=== PATIENT | female | born 1990 | race American Indian/Alaskan Native ===

== ENCOUNTER 2016-12-24 17:06 | Emergency (ER) | payer MEDICAID, OTHER ==
--- NOTE | 2016-12-24 17:53 | EDM.PDOC ---
ED HPI GENERAL MEDICAL PROBLEM - General Chief Complaint: ENT Problem Stated Complaint: PT HAS SORE THROAT Time Seen by Provider: 12/24/16 17:31 - History of Present Illness INITIAL COMMENTS - FREE TEXT/NARRATIVE: HISTORY AND PHYSICAL: History of present illness: The patient is a 26-year-old female who presents with a two-day history of body aches nasal congestion and nasal drainage occasional cough subjective fevers sore throat. Patient did not get her influenza shot this year but did have a tonsillectomy as a teenager. Patient has had ill contacts. She does not have chest pain or shortness of breath no abdominal pain or vomiting but did have one episode of diarrhea this morning. She's tried fqhm-dwa-rujvywv ibuprofen for the bodyaches and a subjective fever and Benadryl. Patient denies any headache or neck pain and has no flank pain or urinary complaints. Patient has an implant for contraception. She has no history of cardiac or pulmonary disease and has been eating and drinking normally. Review of systems: As per history of present illness and below otherwise all systems reviewed and negative. Past medical history: As per history of present illness and as reviewed below otherwise noncontributory. Surgical history: As per history of present illness and as reviewed below otherwise noncontributory. Social history: No reported history of drug or alcohol abuse. Family history: As per history of present illness and as reviewed below otherwise noncontributory. Physical exam: General: Well-developed mildly overweight female who is nontoxic and has nasal quality to voice but is not hoarse. Vital signs of been reviewed by me. HEENT: Atraumatic, normocephalic, pupils reactive, negative for conjunctival pallor or scleral icterus, mucous membranes moist, throat clear of exudates and there is mild posterior oropharyngeal erythema without any swelling, there is no cervical adenopathy or nuchal rigidity, neck supple, nontender, trachea midline. There is no discrete frontal or maxillary sinus tenderness but turbinates are boggy bilaterally and are reddened Lungs: Clear to auscultation, breath sounds equal bilaterally, chest nontender. No work of breathing stridor or sensory muscle use Heart: S1S2, regular, negative for clicks, rubs, or JVD. Abdomen: Soft, nondistended, nontender. Negative for masses or hepatosplenomegaly. Negative for costovertebral tenderness. Genitourinary: Deferred. Rectal: Deferred. Extremities: Atraumatic, negative for cords or calf pain. Neurovascular unremarkable. Neuro: Awake, alert, oriented. Cranial nerves II through XII unremarkable. Cerebellum unremarkable. Motor and sensory unremarkable throughout. Exam nonfocal. Diagnostics: Influenza swab rapid strep Therapeutics: [] Impression: Sinusitis/pharyngitis Definitive disposition and diagnosis as appropriate pending reevaluation and review of above. 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: Musculoskeletal History: Reports: Other (see below) Other Musculoskeletal History: compression fracture in back Neurological History: Reports: None Psychiatric History: Reports: Anxiety, Bipolar, Depression Hematologic History: Reports: None Immunologic History: Reports: None Oncologic (Cancer) History: Reports: None Dermatologic History: Reports: None - Infectious Disease History Infectious Disease History: Reports: None - Past Surgical History HEENT Surgical History: Reports: Tonsillectomy Social & Family History - Family History Family Medical History: Noncontributory HEENT: Reports: None - Tobacco Use Smoking Status *Q: Current Every Day Smoker Years of Tobacco use: 10 Packs/Tins Daily: 1 Second Hand Smoke Exposure: No - Recreational Drug Use Recreational Drug Use: No ED ROS GENERAL - Review of Systems Review Of Systems: ROS reveals no pertinent complaints other than HPI. ED EXAM, GENERAL - Physical Exam Exam: See Below (See dictation) Course - Vital Signs Last Recorded V/S: Last Vital Signs Temp 36.9 C 12/24/16 17:32 Pulse 103 H 12/24/16 17:32 Resp 18 12/24/16 17:32 BP 115/68 12/24/16 17:32 Pulse Ox 98 12/24/16 17:32 - Orders/Labs/Meds Orders: Active Orders 24 hr Category Date Time Status CULTURE STREP A CONFIRMATION [] Stat Lab 12/24/16 17:47 Results STREP SCRN A RAPID W CULT CONF [RM] Stat Lab 12/24/16 17:47 Results Departure - Departure Time of Disposition: 18:36 Disposition: Home, Self-Care 01 Condition: good Clinical Impression: Sinusitis Qualifiers: Sinusitis location: unspecified location Chronicity: acute Recurrence: not specified as recurrent Qualified Code(s): J01.90 - Acute sinusitis, unspecified Forms: ED Department Discharge Additional Instructions: The following information is given to patients seen in the emergency department who are being discharged to home. This information is to outline your options for follow-up care. We provide all patients seen in our emergency department with a follow-up referral. The need for follow-up, as well as the timing and circumstances, are variable depending upon the specifics of your emergency department visit. If you don't have a primary care physician on staff, we will provide you with a referral. We always advise you to contact your personal physician following an emergency department visit to inform them of the circumstance of the visit and for follow-up with them and/or the need for any referrals to a consulting specialist. The emergency department will also refer you to a specialist when appropriate. This referral assures that you have the opportunity for followup care with a specialist. All of these measure are taken in an effort to provide you with optimal care, which includes your followup. Under all circumstances we always encourage you to contact your private physician who remains a resource for coordinating your care. When calling for followup care, please make the office aware that this follow-up is from your recent emergency room visit. If for any reason you are refused follow-up, please contact the [facility] emergency department at and ask to speak to the emergency department charge nurse. [facility]- Internal Medicine [place] [address] Please continue to use Tylenol/ibuprofen for bodyaches and fevers and push hydration as we discussed. Please take antibiotics as directed until they're finished. Use toia-zop-ifbfrnw Benadryl or Claritin to help dry up her sinuses and urmm-wof-fyjbkpa Flonase to help open up the nasal passages and allow adequate drainage. Please call and followup with primary care using resources given to today and return to ER as needed and as discussed. - My Orders Last 24 Hours: My Active Orders 12/24/16 17:47 CULTURE STREP A CONFIRMATION [RM] Stat STREP SCRN A RAPID W CULT CONF [RM] Stat - Assessment/Plan Last 24 Hours: My Active Orders 12/24/16 17:47 CULTURE STREP A CONFIRMATION [RM] Stat STREP SCRN A RAPID W CULT CONF [RM] Stat
[2016-12-24 18:55] VITALS: BP 116/66
== END 2016-12-24 18:44 | disposition home or self-care (01) ==
LOC: MW.ED 17:06
DX: J01.90 Acute sinusitis, unspecified (principal); F41.9 Anxiety disorder, unspecified; F31.9 Bipolar disorder, unspecified; Z79.899 Other long term (current) drug therapy
CPT/HCPCS: 87081; 87804; 87880; 99283

== ENCOUNTER 2017-02-13 08:52 | Emergency (ER) | payer MEDICAID, OTHER ==
--- NOTE | 2017-02-13 09:15 | EDM.PDOC ---
ED HPI GENERAL MEDICAL PROBLEM - General Chief Complaint: Respiratory Problem Stated Complaint: COUGH Time Seen by Provider: 02/13/17 09:15 Source of Information: Reports: Patient - History of Present Illness INITIAL COMMENTS - FREE TEXT/NARRATIVE: HISTORY AND PHYSICAL: History of present illness: [] Patient presents with sore throat increasing in severity over the last week as well as cough and congestion No fever nausea vomiting chills sweats No potato voice drooling or trismus Review of systems: As per history of present illness and below otherwise all systems reviewed and negative. Past medical history: As per history of present illness and as reviewed below otherwise noncontributory. Surgical history: As per history of present illness and as reviewed below otherwise noncontributory. Social history: No reported history of drug or alcohol abuse. Family history: As per history of present illness and as reviewed below otherwise noncontributory. Physical exam: HEENT: Atraumatic, normocephalic, pupils reactive, negative for conjunctival pallor or scleral icterus, mucous membranes moist, throat clear, neck supple, nontender, trachea midline. Moderate erythema no abscess or exudate appreciated Lungs: Clear to auscultation, breath sounds equal bilaterally, chest nontender. Heart: S1S2, regular, negative for clicks, rubs, or JVD. Abdomen: Soft, nondistended, nontender. Negative for masses or hepatosplenomegaly. Negative for costovertebral tenderness. Pelvis: Stable nontender. Genitourinary: Deferred. Rectal: Deferred. Extremities: Atraumatic, negative for cords or calf pain. Neurovascular unremarkable. Neuro: Awake, alert, oriented. Cranial nerves II through XII unremarkable. Cerebellum unremarkable. Motor and sensory unremarkable throughout. Exam nonfocal. Diagnostics: [] Strep Chest 2 views Therapeutics: [] Rocephin 1 g IM Amoxicillin 875 by mouth twice a day Impression: [] Acute pharyngitis/strep Persistent cough Definitive disposition and diagnosis as appropriate pending reevaluation and review of above. 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: Musculoskeletal History: Reports: None Other Musculoskeletal History: compression fracture in back Neurological History: Reports: None Psychiatric History: Reports: Anxiety, Bipolar, Depression Endocrine/Metabolic History: Reports: Obesity/BMI 30+ Hematologic History: Reports: None Immunologic History: Reports: None Oncologic (Cancer) History: Reports: None Dermatologic History: Reports: None - Infectious Disease History Infectious Disease History: Reports: None - Past Surgical History Head Surgeries/Procedures: Reports: None HEENT Surgical History: Reports: Tonsillectomy Social & Family History - Family History Family Medical History: Noncontributory HEENT: Reports: None - Tobacco Use Smoking Status *Q: Current Every Day Smoker Years of Tobacco use: 10 Packs/Tins Daily: 1 Second Hand Smoke Exposure: No - Caffeine Use Caffeine Use: Reports: None - Recreational Drug Use Recreational Drug Use: No ED ROS GENERAL - Review of Systems Review Of Systems: ROS reveals no pertinent complaints other than HPI. ED EXAM, GENERAL - Physical Exam Exam: See Below Course - Vital Signs Last Recorded V/S: Last Vital Signs Temp 36.2 C 02/13/17 09:09 Pulse 103 H 02/13/17 09:09 Resp 16 02/13/17 09:09 BP 130/69 02/13/17 09:09 Pulse Ox 96 02/13/17 09:09 - Orders/Labs/Meds Orders: Active Orders 24 hr Category Date Time Status Chest 2V [CR] Stat Exams 02/13/17 09:15 Taken Labs: Laboratory Tests 02/13/17 Range/Units 09:16 Urine HCG, Qual NEGATIVE (NEGATIVE) Meds: Medications Discontinued Medications Generic Name Dose Route Start Last Admin Trade Name Freq PRN Reason Stop Dose Admin Ceftriaxone Sodium 1,000 mg/ 4 mls @ 4 mls/sec 02/13/17 09:52 Lidocaine HCl IM 02/13/17 09:53 ONETIME ONE Departure - Departure Time of Disposition: 10:07 Disposition: Home, Self-Care 01 Condition: good Clinical Impression: Strep pharyngitis - Discharge Information Forms: ED Department Discharge Additional Instructions: Medication as prescribed Return if symptoms persist or worsen Followup with primary care in 2 weeks The following information is given to patients seen in the emergency department who are being discharged to home. This information is to outline your options for follow-up care. We provide all patients seen in our emergency department with a follow-up referral. The need for follow-up, as well as the timing and circumstances, are variable depending upon the specifics of your emergency department visit. If you don't have a primary care physician on staff, we will provide you with a referral. We always advise you to contact your personal physician following an emergency department visit to inform them of the circumstance of the visit and for follow-up with them and/or the need for any referrals to a consulting specialist. The emergency department will also refer you to a specialist when appropriate. This referral assures that you have the opportunity for follow-up care with a specialist. All of these measure are taken in an effort to provide you with optimal care, which includes your follow-up. Under all circumstances we always encourage you to contact your private physician who remains a resource for coordinating your care. When calling for follow-up care, please make the office aware that this follow-up is from your recent emergency room visit. If for any reason you are refused follow-up, please contact the [facility] emergency department at and asked to speak to the emergency department charge nurse. - My Orders Last 24 Hours: My Active Orders 02/13/17 09:15 Chest 2V [CR] Stat - Assessment/Plan Last 24 Hours: My Active Orders 02/13/17 09:15 Chest 2V [CR] Stat
[2017-02-13] MEDS ORDERED: cefTRIAXone 1,000 MG in Lidocaine 1% 4 ML IM ONE (09:52)
[2017-02-13 10:33] VITALS: BP 131/63
--- NOTE | 2017-02-16 11:02 | CR ---
EXAM DATE: 02/13/17 PATIENT'S AGE: 26 Patient: GRACIE GORMAN Facility: [place], [place] Site . Site : 1990 Study: XRay Chest [id number]/27/2017 9:48:40 AM Ordering Physician: Doctor Wang Final Report: INDICATION: Pain. Shortness of breath. Cough. TECHNIQUE: PA and lateral chest. FINDINGS: Clear lungs. Normal heart size and pulmonary vascularity. Normal included skeletal thorax. IMPRESSION: Normal two view chest. Dictated by Alex Lyons MD @ 02/13/2017 9:50:10 AM Dictated by: Alex Lyons MD @ 02/13/2017 09:50:16 (Electronic Signature) Report Signed by Proxy. KANA
== END 2017-02-13 10:28 | disposition home or self-care (01) ==
LOC: MW.ED 08:52
DX: J02.0 Streptococcal pharyngitis (principal); Z79.899 Other long term (current) drug therapy; F41.9 Anxiety disorder, unspecified; F32.9 Major depressive disorder, single episode, unspecified; F31.9 Bipolar disorder, unspecified; F17.210 Nicotine dependence, cigarettes, uncomplicated; E66.9 Obesity, unspecified; Z68.42 Body mass index [BMI] 45.0-49.9, adult; Z98.890 Other specified postprocedural states
CPT/HCPCS: 71020; 81025; 87880; 96372; 99283; J0696

== ENCOUNTER 2019-10-16 11:30 | Emergency (ER) | payer MEDICAID, OTHER ==
[2019-10-16] MEDS ORDERED: Acetaminophen/HYDROcodone 325-7.5 MG Tab PO STA (13:15)
[2019-10-16] MEDS ORDERED: cefTRIAXone 1 GM Vial IM ONE (13:15)
--- NOTE | 2019-10-16 13:17 | EDM.PDOC ---
ED HPI GENERAL MEDICAL PROBLEM - General Chief Complaint: Skin Complaint Stated Complaint: BOILS Time Seen by Provider: 10/16/19 13:17 Source of Information: Reports: Patient - History of Present Illness INITIAL COMMENTS - FREE TEXT/NARRATIVE: HISTORY AND PHYSICAL: History of present illness: [Presents with superficial cellulitis several small abscesses which have drained on their own across her region post shaving, tenderness for several days ] Fever nausea vomiting chills sweats she does rate pain 8 out of 10 and appears quite uncomfortable, palm sized area of redness slight induration no fluctuance small lesions which have drained on their own cultures obtained ] Review of systems: As per history of present illness and below otherwise all systems reviewed and negative. Past medical history: As per history of present illness and as reviewed below otherwise noncontributory. Surgical history: As per history of present illness and as reviewed below otherwise noncontributory. Social history: No reported history of drug or alcohol abuse. Family history: As per history of present illness and as reviewed below otherwise noncontributory. Physical exam: HEENT: Atraumatic, normocephalic, pupils reactive, negative for conjunctival pallor or scleral icterus, mucous membranes moist, throat clear, neck supple, nontender, trachea midline. Lungs: Clear to auscultation, breath sounds equal bilaterally, chest nontender. Heart: S1S2, regular, negative for clicks, rubs, or JVD. Abdomen: Soft, nondistended, nontender. Negative for masses or hepatosplenomegaly. Negative for costovertebral tenderness. Pelvis: Stable nontender. Genitourinary: Deferred. Rectal: Deferred. Extremities: Atraumatic, negative for cords or calf pain. Neurovascular unremarkable. Neuro: Awake, alert, oriented. Cranial nerves II through XII unremarkable. Cerebellum unremarkable. Motor and sensory unremarkable throughout. Exam nonfocal. 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 Groin Pain Score (Numeric/FACES): 8 - Related Data Allergies Allergy/AdvReac Type Severity Reaction Status Date / Time No Known Allergies Allergy Verified 10/16/19 12:24 Home Meds: Home Meds . 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: Musculoskeletal History: Reports: None Other Musculoskeletal History: compression fracture in back Neurological History: Reports: None Psychiatric History: Reports: Anxiety, Bipolar, Depression Endocrine/Metabolic History: Reports: Obesity/BMI 30+ Hematologic History: Reports: None Immunologic History: Reports: None Oncologic (Cancer) History: Reports: None Dermatologic History: Reports: None - Infectious Disease History Infectious Disease History: Reports: Herpes - Past Surgical History Head Surgeries/Procedures: Reports: None HEENT Surgical History: Reports: Tonsillectomy Social & Family History - Family History Family Medical History: Noncontributory HEENT: Reports: None - Tobacco Use Smoking Status *Q: Current Every Day Smoker Years of Tobacco use: 15 Packs/Tins Daily: 2 - Caffeine Use Caffeine Use: Reports: None - Recreational Drug Use Recreational Drug Use: No ED ROS GENERAL - Review of Systems Review Of Systems: See Below ED EXAM, SKIN/RASH Exam: See Below Course - Vital Signs Last Recorded V/S: Last Vital Signs Temp 97.8 F 10/16/19 12:24 Pulse 109 H 10/16/19 12:24 Resp 18 10/16/19 12:24 BP 123/86 10/16/19 12:24 Pulse Ox 97 10/16/19 12:24 - Orders/Labs/Meds Orders: Active Orders 24 hr Category Date Time Status CULTURE WOUND [RM] Stat Lab 10/16/19 13:19 Received Meds: Medications Discontinued Medications Generic Name Dose Route Start Last Admin Trade Name Crista PRN Reason Stop Dose Admin Hydrocodone Bitart/Acetaminophen 1 tab 10/16/19 13:15 10/16/19 13:30 [place] 325-7.5 Mg PO 10/16/19 13:16 1 tab NOW STA Administration Ceftriaxone Sodium 1 gm 10/16/19 13:15 10/16/19 13:29 Rocephin IM 10/16/19 13:16 1 gm ONETIME ONE Administration Lidocaine HCl Confirm 10/16/19 13:20 10/16/19 13:30 Xylocaine-Mpf 1% Administered 10/16/19 13:21 Not Given Dose 2 mls @ as directed .ROUTE .STK-MED ONE Lidocaine HCl 2 ml 10/16/19 13:22 10/16/19 13:29 Xylocaine-Mpf 1% INJECT 10/16/19 13:23 2 ml ONETIME ONE Administration Departure - Departure Time of Disposition: 13:55 Disposition: Home, Self-Care 01 Condition: Good Clinical Impression: Cellulitis - Discharge Information Referrals: Karen Goldberg MD [Primary Care Provider] - Forms: ED Department Discharge Additional Instructions: Medication as prescribed Return if symptoms persist or worsen Follow-up with primary care in 2 weeks sooner as needed The following information is given to patients seen in the emergency department who are being discharged to home. This information is to outline your options for follow-up care. We provide all patients seen in our emergency department with a follow-up referral. The need for follow-up, as well as the timing and circumstances, are variable depending upon the specifics of your emergency department visit. If you don't have a primary care physician on staff, we will provide you with a referral. We always advise you to contact your personal physician following an emergency department visit to inform them of the circumstance of the visit and for follow-up with them and/or the need for any referrals to a consulting specialist. The emergency department will also refer you to a specialist when appropriate. This referral assures that you have the opportunity for follow-up care with a specialist. All of these measure are taken in an effort to provide you with optimal care, which includes your follow-up. Under all circumstances we always encourage you to contact your private physician who remains a resource for coordinating your care. When calling for follow-up care, please make the office aware that this follow-up is from your recent emergency room visit. If for any reason you are refused follow-up, please contact the [facility] emergency department at and asked to speak to the emergency department charge nurse. Sepsis Event Note - Evaluation Sepsis Screening Result: No Definite Risk - Focused Exam Vital Signs: Vital Signs Temp Pulse Resp BP Pulse Ox 10/16/19 12:24 97.8 F 109 H 18 123/86 97 Date Exam was Performed: 10/16/19 Time Exam was Performed: 13:52 - My Orders Last 24 Hours: My Active Orders 10/16/19 13:19 CULTURE WOUND [RM] Stat - Assessment/Plan Last 24 Hours: My Active Orders 10/16/19 13:19 CULTURE WOUND [RM] Stat
[2019-10-16] MEDS ORDERED: Lidocaine 1% 2 ML ONE (13:20)
[2019-10-16] MEDS ORDERED: Lidocaine 1% PF 2 ML SDV INJECT ONE (13:22)
[2019-10-16 14:06] VITALS: BP 127/78; PULSE 91
== END 2019-10-16 14:06 | disposition home or self-care (01) ==
LOC: MW.ED 11:30
DX: L03.90 Cellulitis, unspecified (principal); F17.210 Nicotine dependence, cigarettes, uncomplicated
CPT/HCPCS: 87070; 87077; 87186; 96372; 99283; A9270; J0696; J2001

== ENCOUNTER 2020-02-26 19:38 | Emergency (ER) | payer OTHER ==
--- NOTE | 2020-02-26 19:46 | EDM.PDOC ---
ED HPI GENERAL MEDICAL PROBLEM - General Chief Complaint: HEALTH CLAIMS EXAMINER Problem Stated Complaint: 4 MONTHS , CRAMPING Time Seen by Provider: 02/26/20 19:40 Source of Information: Reports: Patient History Limitations: Reports: No Limitations - History of Present Illness INITIAL COMMENTS - FREE TEXT/NARRATIVE: HISTORY AND PHYSICAL: History of present illness: Patient is a 29-year-old female who presents to the emergency room with complaints of abdominal cramping in . Generalized low abdominal cramping x 1.5 hrs [employer]. She is currently in the custody of law enforcement. Menstrual period was at the December 07, 2019 and is approximately 12 weeks gestation. She has had her initial HEALTH CLAIMS EXAMINER appointment with Dr. Holden at [facility], although does not recall having an ultrasound to confirm IUP. She denies any vaginal bleeding, discharge or concerns of STDs. Patient denies any fever, chills, headache, change in vision, syncope or near syncope. Denies any chest pain, back pain, shortness of breath or cough. Denies any vomiting, diarrhea, constipation or dysuria. Has not noted any blood in urine or stool. Patient has been eating and drinking appropriately. , P:1 Review of systems: As per history of present illness and below otherwise all systems reviewed and negative. Past medical history: As per history of present illness and as reviewed below otherwise noncontributory. Surgical history: As per history of present illness and as reviewed below otherwise noncontributory. Social history: See social history for further information Family history: As per history of present illness and as reviewed below otherwise noncontributory. Physical exam: General: Well-developed and well-nourished 29-year-old female. Alert and oriented. Nontoxic-appearing and in no acute distress. HEENT: Atraumatic, normocephalic, pupils equal and reactive bilaterally, negative for conjunctival pallor or scleral icterus, mucous membranes moist, TMs normal bilaterally, throat clear, neck supple, nontender, trachea midline. No drooling or trismus noted. No meningeal signs. No hot potato voice noted. Lungs: Clear to auscultation, breath sounds equal bilaterally, chest nontender. Heart: S1S2, regular rate and rhythm without overt murmur Abdomen: Soft, nondistended, diffuse tenderness bilateral lower quadrants- nonspecific. Negative for masses or hepatosplenomegaly. Negative for costovertebral tenderness. Pelvis: Stable nontender. Genitourinary: Declines Skin: Intact, warm, dry. No lesions or rashes noted. Extremities: Atraumatic, moves all extremities per self without difficulty or deficits, negative for cords or calf pain. Neurovascular unremarkable. Neuro: Awake, alert, oriented. Cranial nerves II through XII unremarkable. Cerebellum unremarkable. Motor and sensory unremarkable throughout. Exam nonfocal. Notes: Lab work shows a urinary tract infection. Ultrasound shows single IUP with dates of 11 weeks and 6 days, heart rate 163. Small subchorionic hemorrhage is noted. No other complication process is appreciated. We discussed signs and symptoms that would prompt them to return to the emergency room. Supportive care measures were reviewed and discussed. Voices understanding and is agreeable to plan of care. Denies any further questions or concerns at this time. Diagnostics: CBC, UA, AB/Rh, first trimester ultrasound Therapeutics: Keflex Prescription: Keflex Impression: UTI Abdominal pain in Plan: 1. Please start and/or continue to take your vitamin with folic acid once daily. 2. Pelvic rest until cleared by your OBGYN (no tampons, sex, etc...) 3. Increase your oral fluids. Take Keflex as directed. Tylenol as needed for pain management. 4. Follow up with her HEALTH CLAIMS EXAMINER in the next 1-2 days. Return to the ED as needed and as discussed. Definitive disposition and diagnosis as appropriate pending reevaluation and review of above. Onset: Today Lower Abdomen Pain Score (Numeric/FACES): 7 - Related Data Allergies Allergy/AdvReac Type Severity Reaction Status Date / Time No Known Allergies Allergy Verified 02/26/20 19:43 Home Meds: Home Meds cephALEXin [Keflex] 500 mg PO BID 7 Days #14 cap 02/26/20 [Rx] ziprasidone HCL [Geodon] 40 mg PO BID 02/26/20 [History] Past Medical History HEENT History: Reports: Impaired Vision Cardiovascular History: Reports: None Respiratory History: Reports: None Gastrointestinal History: Reports: None Genitourinary History: Reports: None HEALTH CLAIMS EXAMINER History: Reports: Musculoskeletal History: Reports: None Other Musculoskeletal History: compression fracture in back Neurological History: Reports: None Psychiatric History: Reports: Anxiety, Bipolar, Depression Endocrine/Metabolic History: Reports: Obesity/BMI 30+ Hematologic History: Reports: None Immunologic History: Reports: None Oncologic (Cancer) History: Reports: None Dermatologic History: Reports: None - Infectious Disease History Infectious Disease History: Reports: Herpes - Past Surgical History Head Surgeries/Procedures: Reports: None HEENT Surgical History: Reports: Tonsillectomy Social & Family History - Family History Family Medical History: Noncontributory HEENT: Reports: None - Caffeine Use Caffeine Use: Reports: None ED ROS GENERAL - Review of Systems Review Of Systems: Comprehensive ROS is negative, except as noted in HPI. ED EXAM - Physical Exam Exam: See Below (See dictation) Course - Vital Signs Last Recorded V/S: Last Vital Signs Temp 97.4 F 02/26/20 19:44 Pulse 92 02/26/20 19:44 Resp 16 02/26/20 19:44 BP 119/79 02/26/20 19:44 Pulse Ox 97 02/26/20 19:44 - Orders/Labs/Meds Labs: Laboratory Tests 02/26/20 02/26/20 02/26/20 Range/Units 19:48 19:54 19:54 WBC 12.50 H (4.0-11.0) K/uL RBC 4.43 (4.30-5.90) M/uL Hgb 13.4 (12.0-16.0) g/dL Hct 39.2 (36.0-46.0) % MCV 88.5 (80.0-98.0) fL MCH 30.2 (27.0-32.0) pg MCHC 34.2 (31.0-37.0) g/dL RDW Std Deviation 41.9 (28.0-62.0) fl RDW Coeff of Bonnie 13 (11.0-15.0) % Plt Count 282 (150-400) K/uL MPV 9.30 (7.40-12.00) fL Neut % (Auto) 67.0 (48.0-80.0) % Lymph % (Auto) 27.4 (16.0-40.0) % Mcdowell % (Auto) 4.8 (0.0-15.0) % Eos % (Auto) 0.6 (0.0-7.0) % Baso % (Auto) 0.2 (0.0-1.5) % Neut # (Auto) 8.4 H (1.4-5.7) K/uL Lymph # (Auto) 3.4 H (0.6-2.4) K/uL Mcdowell # (Auto) 0.6 (0.0-0.8) K/uL Eos # (Auto) 0.1 (0.0-0.7) K/uL Baso # (Auto) 0.0 (0.0-0.1) K/uL Nucleated RBC % 0.0 /100WBC Nucleated RBCs # 0 K/uL Sodium (136-145) mmol/L Potassium (3.5-5.1) mmol/L Chloride (98-107) mmol/L Carbon Dioxide (21.0-32.0) mmol/L BUN (7.0-18.0) mg/dL Creatinine (0.6-1.0) mg/dL Est Cr Clr Drug Dosing mL/min Estimated GFR (MDRD) ml/min Glucose (74-106) mg/dL Calcium (8.5-10.1) mg/dL HCG, Quant 93964.0 mIU/mL Urine Color YELLOW Urine Appearance HAZY Urine pH 6.0 (5.0-8.0) Ur Specific [place] 1.020 (1.001-1.035) Urine Protein NEGATIVE (NEGATIVE) mg/dL Urine Glucose (UA) NEGATIVE (NEGATIVE) mg/dL Urine Ketones NEGATIVE (NEGATIVE) mg/dL Urine Occult Blood NEGATIVE (NEGATIVE) Urine Nitrite NEGATIVE (NEGATIVE) Urine Bilirubin NEGATIVE (NEGATIVE) Urine Urobilinogen 0.2 (<2.0) EU/dL Ur Leukocyte Esterase MODERATE H (NEGATIVE) Urine RBC 0-4 (0-2/HPF) Urine WBC 5-10 (0-5/HPF) Ur Epithelial Cells OCCASIONAL (NONE-FEW) Urine Bacteria FEW (NEGATIVE) Blood Type 02/26/20 02/26/20 Range/Units 19:54 19:54 WBC (4.0-11.0) K/uL RBC (4.30-5.90) M/uL Hgb (12.0-16.0) g/dL Hct (36.0-46.0) % MCV (80.0-98.0) fL MCH (27.0-32.0) pg MCHC (31.0-37.0) g/dL RDW Std Deviation (28.0-62.0) fl RDW Coeff of Bonnie (11.0-15.0) % Plt Count (150-400) K/uL MPV (7.40-12.00) fL Neut % (Auto) (48.0-80.0) % Lymph % (Auto) (16.0-40.0) % Mcdowell % (Auto) (0.0-15.0) % Eos % (Auto) (0.0-7.0) % Baso % (Auto) (0.0-1.5) % Neut # (Auto) (1.4-5.7) K/uL Lymph # (Auto) (0.6-2.4) K/uL Mcdowell # (Auto) (0.0-0.8) K/uL Eos # (Auto) (0.0-0.7) K/uL Baso # (Auto) (0.0-0.1) K/uL Nucleated RBC % /100WBC Nucleated RBCs # K/uL Sodium 139 (136-145) mmol/L Potassium 3.8 (3.5-5.1) mmol/L Chloride 103 (98-107) mmol/L Carbon Dioxide 24.9 (21.0-32.0) mmol/L BUN 11 (7.0-18.0) mg/dL Creatinine 0.7 (0.6-1.0) mg/dL Est Cr Clr Drug Dosing 107.67 mL/min Estimated GFR (MDRD) > 60.0 ml/min Glucose 98 (74-106) mg/dL Calcium 8.7 (8.5-10.1) mg/dL HCG, Quant mIU/mL Urine Color Urine Appearance Urine pH (5.0-8.0) Ur Specific [place] (1.001-1.035) Urine Protein (NEGATIVE) mg/dL Urine Glucose (UA) (NEGATIVE) mg/dL Urine Ketones (NEGATIVE) mg/dL Urine Occult Blood (NEGATIVE) Urine Nitrite (NEGATIVE) Urine Bilirubin (NEGATIVE) Urine Urobilinogen (<2.0) EU/dL Ur Leukocyte Esterase (NEGATIVE) Urine RBC (0-2/HPF) Urine WBC (0-5/HPF) Ur Epithelial Cells (NONE-FEW) Urine Bacteria (NEGATIVE) Blood Type A POSITIVE Meds: Medications Discontinued Medications Generic Name Dose Route Start Last Admin Trade Name Freq PRN Reason Stop Dose Admin Cephalexin 500 mg 02/26/20 20:19 02/26/20 20:57 Keflex PO 02/26/20 20:20 500 mg ONETIME ONE Administration Departure - Departure Time of Disposition: 21:12 Disposition: Home, Self-Care 01 Clinical Impression: Abdominal pain affecting UTI (urinary tract infection) Qualifiers: Urinary tract infection type: site unspecified Hematuria presence: without hematuria Qualified Code(s): N39.0 - Urinary tract infection, site not specified - Discharge Information Prescriptions: cephALEXin [Keflex] 500 mg PO BID 7 Days #14 cap Instructions: Urinary Tract Infection, Adult, [id number], Abdominal Pain During Referrals: Mando Morris [Primary Care Provider] - Forms: ED Department Discharge Additional Instructions: The following information is given to patients seen in the emergency department who are being discharged to home. This information is to outline your options for follow-up care. We provide all patients seen in our emergency department with a follow-up referral. The need for follow-up, as well as the timing and circumstances, are variable depending upon the specifics of your emergency department visit. If you don't have a primary care physician on staff, we will provide you with a referral. We always advise you to contact your personal physician following an emergency department visit to inform them of the circumstance of the visit and for follow-up with them and/or the need for any referrals to a consulting specialist. The emergency department will also refer you to a specialist when appropriate. This referral assures that you have the opportunity for follow-up care with a specialist. All of these measure are taken in an effort to provide you with optimal care, which includes your follow-up. Under all circumstances we always encourage you to contact your private physician who remains a resource for coordinating your care. When calling for follow-up care, please make the office aware that this follow-up is from your recent emergency room visit. If for any reason you are refused follow-up, please contact the [facility] Emergency Department at and asked to speak to the emergency department charge nurse. [facility] [address] [place] [id number] [facility] [address] [place] [address] 1. Please start and/or continue to take your vitamin with folic acid once daily. 2. Pelvic rest until cleared by your OBGYN (no tampons, sex, etc...) 3. Increase your oral fluids. Take Keflex as directed. Tylenol as needed for pain management. 4. Follow up with her HEALTH CLAIMS EXAMINER in the next 1-2 days. Return to the ED as needed and as discussed. Sepsis Event Note - Focused Exam Vital Signs: Vital Signs Temp Pulse Resp BP Pulse Ox 02/26/20 19:44 97.4 F 92 16 119/79 97 Date Exam was Performed: 02/26/20 Time Exam was Performed: 21:11
[2020-02-26 20:18] LABS: BLOOD UREA NITROGEN,BUN 11 mg/dL (7.0-18.0); CARBON DIOXIDE,CO2 24.9 mmol/L (21.0-32.0); CHLORIDE,CL 103 mmol/L (98-107); GLUCOSE RANDOM 98 mg/dL (74-106); POTASSIUM,K 3.8 mmol/L (3.5-5.1); SODIUM,NA 139 mmol/L (136-145)
[2020-02-26] MEDS ORDERED: Cephalexin 500 MG Cap PO ONE (20:19)
--- NOTE | 2020-02-26 21:10 | US ---
1st trimester obstetrical ultrasound: Multiple real-time images were obtained transvaginally. Comparison: No prior study for current is available. Dates: Current ultrasound: LIN 09/10/20, gestational age 11 weeks 6 days Single intrauterine gestation is seen. Amniotic fluid volume is normal. Small subchorionic hemorrhage is identified. Cervix is closed with normal length. Measurements: Imbery-rump length: 51.23 mm - 11 weeks 6 days Heart rate: 163 BPM Maternal ovaries not seen, no adnexal abnormality is appreciated. Impression: 1. Single intrauterine gestation. Date as noted above. 2. Small subchorionic hemorrhage is noted. 3. No other complicating process is appreciated. Diagnostic code #3 This report was dictated in MDT
[2020-02-26 21:21] VITALS: BP 105/54; PULSE 75
== END 2020-02-26 21:22 | disposition home or self-care (01) ==
LOC: MW.ED 19:38
DX: O23.41 Unspecified infection of urinary tract in pregnancy, first trimester (principal); O99.341 Other mental disorders complicating pregnancy, first trimester; O99.211 Obesity complicating pregnancy, first trimester; F31.9 Bipolar disorder, unspecified; Z68.38 Body mass index [BMI] 38.0-38.9, adult; Z3A.12 12 weeks gestation of pregnancy
CPT/HCPCS: 36415; 76801; 80048; 81001; 84702; 85025; 86900; 86901; 99284; A9270; 99283

== ENCOUNTER 2020-06-29 15:58 | Emergency (ER) | payer MEDICAID ==
[2020-06-29] MEDS ORDERED: Ondansetron 4 MG/2 ML SDV IVPUSH ONE (16:45)
[2020-06-29] MEDS ORDERED: Lactated Ringers 1,000 ML IV ONE ×2 (16:45→17:09)
--- NOTE | 2020-06-29 17:04 | EDM.PDOC ---
ED [facility] GENERAL MEDICAL PROBLEM - General Chief Complaint: Gastrointestinal Problem Stated Complaint: VOMITING BLOOD Time Seen by Provider: 06/29/20 16:25 Source of Information: Reports: Patient, Old Records - History of Present Illness INITIAL COMMENTS - FREE TEXT/NARRATIVE: 30-year-old female who is currently approximately 7 months , G2, P1, presenting with epigastric abdominal pain, nausea, and vomiting. She reports a 2-day history of persistent nausea, vomiting which she believes is blood, rhinorrhea associated with episodes of emesis, and diaphoresis. No prior history of gastritis or GI bleed. Denies any hematochezia or melena, central or lower abdominal pain, dysuria, urinary frequency, hematuria, vaginal bleeding or leakage of fluids, or back pain. No history of a bleeding disorder. Does have a history of GERD/reflux. Did not take any self treatment prior to arrival. Epigastric pain described as "burning", radiating up into the chest, nothing makes it better or worse, intermittent. Rated as 5 out of 10. 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 ROS: A 10-point review of systems was negative, except as noted in the HPI (or in the ROS section of this note). Past medical history: Reviewed, no additional pertinent history. Surgical history: Reviewed in system, no additional pertinent history. Social history: Reviewed in system, no additional pertinent history. Family history: Reviewed in system, no additional pertinent history. PHYSICAL EXAM Vital signs reviewed. Nursing notes reviewed. Constitutional: Awake, alert, non-distressed. Head: Normocephalic, atraumatic. Eyes: EOMI, conjunctiva normal, no discharge, no scleral icterus. Ears, Nose, Throat: External ears and nose normal, moist oral mucosa. No blood noted in the oropharynx. Cardiovascular: 2+ radial pulse, capillary refill less than 2 seconds. Pulmonary: normal work of breathing, no accessory muscle use. Abdomen/GI: Gravid, soft, mild epigastric tenderness, nondistended, no guarding or rigidity, no masses. No periumbilical or lower abdominal tenderness. No CVA tenderness. Musculoskeletal: No deformities. Integumentary: Appropriate color for ethnicity, warm, dry, no pallor or ja undice, no rash. Neurologic: Alert, answering questions appropriately, normal speech, no facial droop, moving all extremities well. Psychiatric: Appropriate mood and affect, normal thought process. - Related Data Allergies Allergy/AdvReac Type Severity Reaction Status Date / Time No Known Allergies Allergy Verified 06/29/20 16:06 Home Meds: Home Meds ziprasidone HCL [Geodon] 40 mg PO BID 02/26/20 [History] Ondansetron [Zofran] 4 mg PO Q8H PRN #15 tab 06/29/20 [Rx] hydrOXYzine HCL [hydrOXYzine] 100 mg PO DAILY 06/29/20 [History] Past Medical History HEENT History: Reports: Impaired Vision Cardiovascular History: Reports: None Respiratory History: Reports: None Gastrointestinal History: Reports: None Genitourinary History: Reports: None RESP THER History: Reports: Musculoskeletal History: Reports: None Other Musculoskeletal History: compression fracture in back Neurological History: Reports: None Psychiatric History: Reports: Anxiety, Bipolar, Depression, Other (See Below) Endocrine/Metabolic History: Reports: Obesity/BMI 30+ Hematologic History: Reports: None Immunologic History: Reports: None Oncologic (Cancer) History: Reports: None Dermatologic History: Reports: None - Infectious Disease History Infectious Disease History: Reports: Herpes - Past Surgical History Head Surgeries/Procedures: Reports: None HEENT Surgical History: Reports: Tonsillectomy Social & Family History - Family History Family Medical History: Noncontributory HEENT: Reports: None - Tobacco Use Smoking Status *Q: Current Every Day Smoker Years of Tobacco use: 9 Packs/Tins Daily: 1 - Caffeine Use Caffeine Use: Reports: None - Recreational Drug Use Recreational Drug Use: Yes Drug Use in Last 12 Months: Yes Recreational Drug Type: Reports: Marijuana/Hashish Recreational Drug Use Frequency: Daily ED ROS GENERAL - Review of Systems Review Of Systems: See Below ED EXAM, GI/ABD - Physical Exam Exam: See Below Course - Vital Signs Text/Narrative:: DDX includes but is not limited to gastritis, peptic ulcer disease, Nini- Horne tear, H. pylori, GERD, coagulopathy, upper GI bleed, pancreatitis, acute hepatitis, nonspecific abdominal pain, and many others. Hemodynamically stable on arrival, not tachycardic or hypotensive. Looks nontoxic. No uterine or lower abdominal tenderness. Mild epigastric tenderness. I examined the emesis bag at the bedside which was filled with chavez- colored fluid that looks like typical gastric contents. I did not observe any bright red blood or coffee-ground emesis to suggest a GI bleed. I do not see any blood in her oropharynx to suggest actual hematemesis. IV access established and labs sent off. Hemoglobin and platelets are normal, no leukocytosis. INR is normal. Chemistry panel shows mild hypokalemia 3.0. Normal renal function and hepatic markers. She was given 1 L of lactated Ringer's along with IV Zofran and a GI cocktail. She felt much better after these medications, was able to p.o. challenge with fluids and is no longer actively vomiting. She is feeling much better and wants to be discharged home. There is no objective evidence of an upper GI bleed/hematemesis from what I can tell. Patient does have an OB ultrasound on file showing an IUP. Her pain is epigastric in nature and not periumbilical or lower abdominal, there is no vaginal bleeding or low back pain to warrant a repeat ultrasound at this point. 1840: Patient feeling much better. Tolerating p.o. intake without issue. GI cocktail significantly improved her pain. We did discuss symptomatic treatment including a short course of ODT Zofran, Maalox max, and Prilosec. We will have her follow-up with an RESP THER in 1 to 2 weeks for reevaluation. Discussed return precautions. Last Recorded V/S: Last Vital Signs Temp 36.4 C 06/29/20 18:52 Pulse 93 06/29/20 18:52 Resp 20 06/29/20 18:52 BP 131/82 06/29/20 18:52 Pulse Ox 97 06/29/20 18:52 - Orders/Labs/Meds Labs: Laboratory Tests 06/29/20 06/29/20 06/29/20 Range/Units 16:39 16:39 16:39 WBC 9.33 (4.0-11.0) K/uL RBC 4.33 (4.30-5.90) M/uL Hgb 13.0 (12.0-16.0) g/dL Hct 37.8 (36.0-46.0) % MCV 87.3 (80.0-98.0) fL MCH 30.0 (27.0-32.0) pg MCHC 34.4 (31.0-37.0) g/dL RDW Std Deviation 41.6 (28.0-62.0) fl RDW Coeff of Bonnie 13 (11.0-15.0) % Plt Count 319 (150-400) K/uL MPV 9.70 (7.40-12.00) fL Neut % (Auto) 68.3 (48.0-80.0) % Lymph % (Auto) 23.7 (16.0-40.0) % Kimble % (Auto) 7.5 (0.0-15.0) % Eos % (Auto) 0.4 (0.0-7.0) % Baso % (Auto) 0.1 (0.0-1.5) % Neut # (Auto) 6.4 H (1.4-5.7) K/uL Lymph # (Auto) 2.2 (0.6-2.4) K/uL Kimble # (Auto) 0.7 (0.0-0.8) K/uL Eos # (Auto) 0.0 (0.0-0.7) K/uL Baso # (Auto) 0.0 (0.0-0.1) K/uL Nucleated RBC % 0.0 /100WBC Nucleated RBCs # 0 K/uL INR 0.94 Sodium 140 (136-145) mmol/L Potassium 3.0 L (3.5-5.1) mmol/L Chloride 104 (98-107) mmol/L Carbon Dioxide 22.5 (21.0-32.0) mmol/L BUN 10 (7.0-18.0) mg/dL Creatinine 0.7 (0.6-1.0) mg/dL Est Cr Clr Drug Dosing 106.70 mL/min Estimated GFR (MDRD) > 60.0 ml/min Glucose 99 (74-106) mg/dL Calcium 9.1 (8.5-10.1) mg/dL Total Bilirubin 0.6 (0.2-1.0) mg/dL AST 30 (15-37) IU/L ALT 49 (14-63) IU/L Alkaline Phosphatase 102 (46-116) U/L Total Protein 6.8 (6.4-8.2) g/dL Albumin 3.1 L (3.4-5.0) g/dL Globulin 3.7 (2.6-4.0) g/dL Albumin/Globulin Ratio 0.8 L (0.9-1.6) HCG, Qual (NEG) Blood Type 06/29/20 06/29/20 Range/Units 16:39 16:39 WBC (4.0-11.0) K/uL RBC (4.30-5.90) M/uL Hgb (12.0-16.0) g/dL Hct (36.0-46.0) % MCV (80.0-98.0) fL MCH (27.0-32.0) pg MCHC (31.0-37.0) g/dL RDW Std Deviation (28.0-62.0) fl RDW Coeff of Bonnie (11.0-15.0) % Plt Count (150-400) K/uL MPV (7.40-12.00) fL Neut % (Auto) (48.0-80.0) % Lymph % (Auto) (16.0-40.0) % Kimble % (Auto) (0.0-15.0) % Eos % (Auto) (0.0-7.0) % Baso % (Auto) (0.0-1.5) % Neut # (Auto) (1.4-5.7) K/uL Lymph # (Auto) (0.6-2.4) K/uL Kimble # (Auto) (0.0-0.8) K/uL Eos # (Auto) (0.0-0.7) K/uL Baso # (Auto) (0.0-0.1) K/uL Nucleated RBC % /100WBC Nucleated RBCs # K/uL INR Sodium (136-145) mmol/L Potassium (3.5-5.1) mmol/L Chloride (98-107) mmol/L Carbon Dioxide (21.0-32.0) mmol/L BUN (7.0-18.0) mg/dL Creatinine (0.6-1.0) mg/dL Est Cr Clr Drug Dosing mL/min Estimated GFR (MDRD) ml/min Glucose (74-106) mg/dL Calcium (8.5-10.1) mg/dL Total Bilirubin (0.2-1.0) mg/dL AST (15-37) IU/L ALT (14-63) IU/L Alkaline Phosphatase (46-116) U/L Total Protein (6.4-8.2) g/dL Albumin (3.4-5.0) g/dL Globulin (2.6-4.0) g/dL Albumin/Globulin Ratio (0.9-1.6) HCG, Qual POSITIVE H (NEG) Blood Type A POSITIVE Meds: Medications Discontinued Medications Generic Name Dose Route Start Last Admin Trade Name Freq PRN Reason Stop Dose Admin Al Hydroxide/Mg Hydroxide 15 0 ml 06/29/20 17:09 06/29/20 17:36 ml/ Lidocaine HCl 5 ml PO 06/29/20 17:10 1 each ONETIME ONE Administration Lactated Ringer's 1,000 mls @ 999 mls/hr 06/29/20 16:45 06/29/20 17:41 Ringers, Lactated IV 06/29/20 17:45 999 mls/hr .BOLUS ONE Administration Lactated Ringer's 1,000 mls @ 999 mls/hr 06/29/20 17:09 06/29/20 18:21 Ringers, Lactated IV 06/29/20 18:09 Not Given .BOLUS ONE Ondansetron HCl 4 mg 06/29/20 16:45 06/29/20 17:41 Zofran IVPUSH 06/29/20 16:46 4 mg ONETIME ONE Administration Departure - Departure Time of Disposition: 18:44 Disposition: Home, Self-Care 01 Condition: Good Clinical Impression: Nausea and vomiting during , Hypokalemia - Discharge Information *PRESCRIPTION DRUG MONITORING PROGRAM REVIEWED*: Not Applicable *COPY OF PRESCRIPTION DRUG MONITORING REPORT IN PATIENT CHEMO: Not Applicable Prescriptions: Ondansetron [Zofran] 4 mg PO Q8H PRN #15 tab PRN Reason: Nausea/Vomiting Instructions: Hypokalemia, Nausea and Vomiting, Adult Forms: ED Department Discharge Additional Instructions: You were seen in the emergency department for abdominal pain, nausea, and vomiting. Your blood work is reassuring. There is no evidence of blood in the vomit that we are evaluating at the bedside. Your blood count is normal. It is not uncommon to have frequent nausea vomiting during . We are going to prescribe a short course of medicaments and called Zofran which could help with your nausea. I also believe that you are having some problems with heartburn which is not uncommon in women. You can take [id number] Maalox max and Prilosec as directed on the package for heartburn. Follow-up with your RESP [facility] clinic in about a week for reevaluation if you are not feeling better. Warning signs to come back to the ER include worsening abdominal pain, bright red blood in your vomit or coffee-ground looking vomit, bright red blood in your stool or black tarry stools, or any other new or concerning symptoms including vaginal bleeding or severe abdominal pain. Please return the emergency department immediately if your symptoms worsen or if you feel worse. Thank you for choosing the [facility] emergency department in [place] for your medical needs today. It was a pleasure caring for you. The following information is given to patients seen in the emergency department who are being discharged. This information is to outline your options for follow-up care. We provide all patients seen in our emergency department with a follow-up referral. The need for follow-up, as well as the timing and circumstances, are variable depending upon the specifics of your emergency department visit. If you don't have a primary care physician on staff, we will provide you with a referral. We always advise you to contact your personal physician following an emergency department visit to inform them of the circumstance of the visit and for follow-up with them and/or the need for any referrals to a consulting specialist. The emergency department will also refer you to a specialist when appropriate. This referral assures that you have the opportunity for follow-up care with a specialist. All of these measure are taken in an effort to provide you with optimal care, which includes your follow-up. Under all circumstances we always encourage you to contact your private physician who remains a resource for coordinating your care. When calling for follow-up care, please make the office aware that this follow-up is from your recent emergency room visit. If for any reason you are refused follow-up, please contact the [facility] Emergency Department at and asked to speak to the emergency department charge nurse. If you do not have a primary care physician that is caring for you, you can contact these clinics below to set up an appointment to establish care: [facility] - Primary Care [address] [place] [id number] [facility] [address] [place] [id number] Sepsis Event Note (ED) - Evaluation Sepsis Screening Result: Possible Sepsis Risk
[2020-06-29] MEDS ORDERED: Alum Hydrox/Mag Hydrox/Simeth 15 ML, Lidocaine 2% 5 ML PO ONE ×2 (17:09)
[2020-06-29 17:11] LABS: BLOOD UREA NITROGEN,BUN 10 mg/dL (7.0-18.0); CARBON DIOXIDE,CO2 22.5 mmol/L (21.0-32.0); CHLORIDE,CL 104 mmol/L (98-107); GLUCOSE RANDOM 99 mg/dL (74-106); SODIUM,NA 140 mmol/L (136-145)
[2020-06-29 18:53] VITALS: BP 131/82; PULSE 93
== END 2020-06-29 19:03 | disposition home or self-care (01) ==
LOC: MW.ED 15:58
DX: O99.283 Endocrine, nutritional and metabolic diseases complicating pregnancy, third trimester (principal); E87.6 Hypokalemia; O21.9 Vomiting of pregnancy, unspecified; O99.343 Other mental disorders complicating pregnancy, third trimester; F31.9 Bipolar disorder, unspecified; F41.9 Anxiety disorder, unspecified; O99.333 Smoking (tobacco) complicating pregnancy, third trimester; F17.210 Nicotine dependence, cigarettes, uncomplicated; O99.213 Obesity complicating pregnancy, third trimester
CPT/HCPCS: 36415; 80053; 84703; 85025; 85610; 86900; 86901; 96374; 99284; A9270; J2405; J7120

== ENCOUNTER 2020-08-27 16:23 | Inpatient (IN) | payer MEDICAID, OTHER ==
[2020-08-27] MEDS ORDERED: Nalbuphine 10 MG/1 ML Vial IVPUSH PRN (16:45)
[2020-08-27] MEDS ORDERED: Butorphanol 1 MG/ML SDV IVPUSH PRN (16:45)
[2020-08-27] MEDS ORDERED: Sodium Chloride 0.9% 2.5 ML Syringe FLUSH PRN (16:45)
[2020-08-27] MEDS ORDERED: Oxytocin/0.9 % Sodium Chloride 30 UNIT/500 ML BAG IV SCH ×2 (16:45→22:15)
[2020-08-27] MEDS ORDERED: Sodium Chloride 0.9% 10 ML SDV IV PRN (16:45)
[2020-08-27] MEDS ORDERED: Tranexamic Acid 1,000 MG in Sodium Chloride 0.9% 100 ML IV PRN (16:45)
[2020-08-27] MEDS ORDERED: Lidocaine 1% 50 ML MDV INJECT PRN (16:45)
[2020-08-27] MEDS ORDERED: Water For Irrigation,Sterile 1,000 ML Container IRR PRN (16:45)
[2020-08-27] MEDS ORDERED: Sodium Chloride 0.9% 10 ML Syringe FLUSH PRN (16:45)
[2020-08-27] MEDS ORDERED: Methylergonovine 0.2 MG/1 ML Amp IM PRN (16:45)
[2020-08-27] MEDS ORDERED: Misoprostol 200 MCG Tab PO PRN (16:45)
[2020-08-27] MEDS ORDERED: Carboprost Tromethamine 250 MCG/1 ML Amp IM PRN (16:45)
[2020-08-27] MEDS ORDERED: Bupivicaine/fentaNYL/NS 250 ML ONE (17:34)
[2020-08-27] MEDS: Lactated Ringers 1,000 ML IV SCH ×2 (17:38→18:20)
[2020-08-27] MEDS ORDERED: Ampicillin 2 GM in Sodium Chloride 0.9% 100 ML IV ONE (17:45)
[2020-08-27] MEDS ORDERED: Ampicillin 2 GM AdvVial IV ONE (18:01)
[2020-08-27] MEDS ORDERED: Sodium Chloride 0.9% 100 ML ONE (18:02)
[2020-08-27] MEDS ORDERED: Oxytocin/0.9 % Sodium Chloride 30 UNIT/500 ML BAG ONE (19:18)
[2020-08-27] MEDS ORDERED: Ampicillin 1 GM Vial ONE (20:43)
[2020-08-27] MEDS ORDERED: Sodium Chloride 0.9% 50 ML ONE (20:44)
[2020-08-27] MEDS ORDERED: Ampicillin 1 GM in Sodium Chloride 0.9% 50 ML IV SCH (22:00)
[2020-08-28] MEDS ORDERED: Ampicillin 1 GM Vial ONE (02:00)
[2020-08-28] MEDS ORDERED: Sodium Chloride 0.9% 50 ML ONE (02:01)
--- NOTE | 2020-08-28 07:31 | PCM.PREANE ---
Preanesthetic Assessment - Anesthesia/Transfusion/Family Hx Anesthesia History: Prior Anesthesia Without Reaction Family History of Anesthesia Reaction: No Transfusion History: No Prior Transfusion(s) - Review of Systems General: No Symptoms Pulmonary: No Symptoms Cardiovascular: No Symptoms Gastrointestinal: No Symptoms Neurological: No Symptoms Other: Reports: None - Physical Assessment Height: 5 ft 6 in Weight: 120.656 kg ASA Class: 2 Mental Status: Alert & Oriented x3 Dentition: Reports: Normal Dentition ROM/Head Extension: Full Lungs: Clear to Auscultation, Normal Respiratory Effort Cardiovascular: Regular Rate, Regular Rhythm - Lab Values: Laboratory Last Values WBC 11.39 K/uL (4.0-11.0) H 08/27/20 16:30 RBC 4.16 M/uL (4.30-5.90) L 08/27/20 16:30 Hgb 12.4 g/dL (12.0-16.0) 08/27/20 16:30 Hct 37.4 % (36.0-46.0) 08/27/20 16:30 MCV 89.9 fL (80.0-98.0) 08/27/20 16:30 MCH 29.8 pg (27.0-32.0) 08/27/20 16:30 MCHC 33.2 g/dL (31.0-37.0) 08/27/20 16:30 RDW Std Deviation 49.5 fl (28.0-62.0) 08/27/20 16:30 RDW Coeff of Bonnie 15 % (11.0-15.0) 08/27/20 16:30 Plt Count 284 K/uL (150-400) 08/27/20 16:30 MPV 9.60 fL (7.40-12.00) 08/27/20 16:30 Nucleated RBC % 0.0 /100WBC 08/27/20 16:30 Nucleated RBCs # 0 K/uL 08/27/20 16:30 Cord ABG pH 7.220 (7.18-7.38) 08/28/20 02:51 Cord ABG Base Excess -3 (-10--2) 08/28/20 02:51 Cord VBG pH 7.337 (7.25-7.45) 08/28/20 02:51 Cord VBG Base Excess -2 (-10--2) 08/28/20 02:51 Urine Opiates Screen NEGATIVE (NEGATIVE) 08/27/20 19:40 Ur Oxycodone Screen NEGATIVE (NEGATIVE) 08/27/20 19:40 Urine Methadone Screen NEGATIVE (NEGATIVE) 08/27/20 19:40 Ur Barbiturates Screen NEGATIVE (NEGATIVE) 08/27/20 19:40 Ur Phencyclidine Scrn NEGATIVE (NEGATIVE) 08/27/20 19:40 Ur Amphetamine Screen NEGATIVE (NEGATIVE) 08/27/20 19:40 U Methamphetamines Scrn NEGATIVE (NEGATIVE) 08/27/20 19:40 U Benzodiazepines Scrn NEGATIVE (NEGATIVE) 08/27/20 19:40 U Cocaine Metab Screen NEGATIVE (NEGATIVE) 08/27/20 19:40 U Marijuana (THC) Screen POSITIVE (NEGATIVE) 08/27/20 19:40 SARS-CoV-2 RNA (REYNA) POSITIVE (NEGATIVE) H 08/27/20 16:35 Blood Type A POSITIVE 08/27/20 16:30 Antibody Screen NEGATIVE 08/27/20 16:30 - Allergies Allergies/Adverse Reactions: Allergies Allergy/AdvReac Type Severity Reaction Status Date / Time No Known Allergies Allergy Verified 06/29/20 16:06 - Blood Blood Available: No - Anesthesia Plan Pre-Op Medication Ordered: None - Acknowledgements Anesthesia Type Planned: Epidural Pt an Appropriate Candidate for the Planned Anesthesia: Yes Alternatives and Risks of Anesthesia Discussed w Pt/Guardian: Yes Pt/Guardian Understands and Agrees with Anesthesia Plan: Yes PreAnesthesia Questionnaire HEENT History: Reports: Impaired Vision, Other (See Below) Other HEENT History: tinnitis left ear Cardiovascular History: Reports: None Respiratory History: Reports: None Gastrointestinal History: Reports: None Genitourinary History: Reports: None BAKER SECOND History: Reports: Musculoskeletal History: Reports: None Other Musculoskeletal History: compression fracture in back Neurological History: Reports: Migraines Psychiatric History: Reports: Anxiety, Bipolar, Depression Endocrine/Metabolic History: Reports: Diabetes, Gestational, Obesity/BMI 30+ Hematologic History: Reports: None Immunologic History: Reports: None Oncologic (Cancer) History: Reports: None Dermatologic History: Reports: None - Infectious Disease History Infectious Disease History: Reports: Chicken Pox, Herpes - Past Surgical History Head Surgeries/Procedures: Reports: None HEENT Surgical History: Reports: Tonsillectomy Female Surgical History: Reports: None - SUBSTANCE USE Tobacco Use Status *Q: Current Every Day Tobacco User Tobacco Use Within Last Twelve Months: Cigarettes Second Hand Smoke Exposure: No Recreational Drug Use History: Yes Recreational Drug Type: Reports: Marijuana/Hashish Recreational Drug Last Use: 2 weeks ago - HOME MEDS Home Medications: Home Meds ziprasidone HCL [Geodon] 40 mg PO BID 02/26/20 [History] Ondansetron [Zofran] 4 mg PO Q8H PRN #15 tab 06/29/20 [Rx] hydrOXYzine HCL [hydrOXYzine] 100 mg PO DAILY 06/29/20 [History] - CURRENT (IN HOUSE) MEDS Current Meds: Current Medications Butorphanol Tartrate (Stadol) 1 mg IVPUSH Q1H PRN PRN Reason: Pain Carboprost Tromethamine (Hemabate Ds) 250 mcg IM ASDIRECTED PRN PRN Reason: Post Hemorrhage Lactated Ringer's (Ringers, Lactated) 1,000 mls @ 150 mls/hr IV ASDIRECTED DENYS Last Infusion: 08/27/20 18:48 Dose: 150 mls/hr Documented by: Oxytocin/Sodium Chloride (Oxytocin 30 Unit/500 Ml-Ns) 30 unit in 500 mls @ 500 mls/hr IV TITRATE DENYS Tranexamic Acid 1,000 mg/ (Sodium Chloride) 110 mls @ 660 mls/hr IV ONETIME PRN PRN Reason: Bleeding Ampicillin Sodium 1 gm/ Sodium (Chloride) 50 mls @ 100 mls/hr IV Q4H DENYS Last Admin: 08/27/20 21:46 Dose: 100 mls/hr Documented by: Oxytocin/Sodium Chloride (Oxytocin 30 Unit/500 Ml-Ns) 30 unit in 500 mls @ 2 mls/hr IV TITRATE DENYS; Protocol Last Infusion: 08/28/20 01:38 Dose: 16 munits/min, 16 mls/hr Documented by: Lidocaine HCl (Xylocaine 1%) 50 ml INJECT ONETIME PRN PRN Reason: Laceration repair Methylergonovine Maleate (Methergine) 0.2 mg IM ASDIRECTED PRN PRN Reason: Post Hemorrhage Misoprostol (Cytotec) 200 mcg PO ONETIME PRN PRN Reason: Post Hemorrhage Nalbuphine HCl (Nubain) 10 mg IVPUSH Q1H PRN PRN Reason: Pain (severe 7-10) Sodium Chloride (Saline Flush) 10 ml FLUSH ASDIRECTED PRN PRN Reason: Keep Vein Open Sodium Chloride (Saline Flush) 2.5 ml FLUSH ASDIRECTED PRN PRN Reason: Keep Vein Open Sodium Chloride (Normal Saline) 10 ml IV ASDIRECTED PRN PRN Reason: IV Use Sterile Water (Sterile Water For Irrigation) 1,000 ml IRR ASDIRECTED PRN PRN Reason: delivery Discontinued Medications Ampicillin Sodium (Ampicillin) Confirm Administered Dose 2 gm IV .STK-MED ONE Stop: 08/27/20 18:02 Ampicillin Sodium (Ampicillin) Confirm Administered Dose 1 gm .ROUTE .STK-MED ONE Stop: 08/27/20 20:44 Ampicillin Sodium (Ampicillin) Confirm Administered Dose 1 gm .ROUTE .STK-MED ONE Stop: 08/28/20 02:01 Fentanyl/Bupivacaine HCl (Fentanyl/Bupivacaine/Ns 2 Mcg-0.125% 250 Ml) Confirm Administered Dose 250 mls @ as directed .ROUTE .STK-MED ONE Stop: 08/27/20 17:35 Ampicillin Sodium 2 gm/ Sodium (Chloride) 100 mls @ 200 mls/hr IV ONETIME ONE Stop: 08/27/20 18:14 Last Admin: 08/27/20 18:00 Dose: 200 mls/hr Documented by: Sodium Chloride (Normal Saline) Confirm Administered Dose 100 mls @ as directed .ROUTE .STK-MED ONE Stop: 08/27/20 18:03 Oxytocin/Sodium Chloride (Oxytocin 30 Unit/500 Ml-Ns) Confirm Administered Dose 30 unit in 500 mls @ as directed .ROUTE .STK-MED ONE Stop: 08/27/20 19:19 Sodium Chloride (Normal Saline) Confirm Administered Dose 50 mls @ as directed .ROUTE .STK-MED ONE Stop: 08/27/20 20:45 Sodium Chloride (Normal Saline) Confirm Administered Dose 50 mls @ as directed .ROUTE .STK-MED ONE Stop: 08/28/20 02:02
--- NOTE | 2020-08-28 07:33 | PCM48HPAN ---
Post Anesthesia Note - EVALUATION WITHIN 48HRS OF ANESTHETIC Vital Signs in Normal Range: Yes Patient Participated in Evaluation: Yes Respiratory Function Stable: Yes Airway Patent: Yes Cardiovascular Function Stable: Yes Hydration Status Stable: Yes Pain Control Satisfactory: Yes Nausea and Vomiting Control Satisfactory: Yes Mental Status Recovered: Yes - COMMENTS/OBSERVATIONS Free Text/Narrative:: Pt denies and problems from epidural. VSS
--- NOTE | 2020-08-28 08:51 | OR ---
SURGEON: Robyn Padilla M.D. DATE OF PROCEDURE: 08/28/2020 PREOPERATIVE DIAGNOSES: 1. Thirty-seven and 6 weeks' intrauterine . 2. Labor. 3. Group B beta strep positive. 4. COVID positive. POSTOPERATIVE DIAGNOSES: 1. Thirty-seven and 6 weeks' intrauterine . 2. Labor. 3. Group B beta strep positive. 4. COVID positive. PROCEDURE: Spontaneous vaginal delivery, intact perineum. ANESTHESIA: Epidural. ESTIMATED BLOOD LOSS: 300 mL. COMPLICATIONS: None. FINDINGS: Viable female, score 7 at 1 minute, 8 at 5 minutes. Weight of 3340 g. Spontaneous delivery, intact placenta, 3-vessel cord. DISPOSITION: Infant to nursery. Mom in LDRP. INDICATIONS: Emilie is a 30-year-old G2, P1, at 37 and 6 weeks gestation when she presented for her routine OB visit on 08/27/2020. At the time of the visit, she was having contractions and was noted to be 5 cm. Therefore, she is admitted to Labor and Delivery. A bright light exam had been performed and she is asymptomatic for HSV as well as no lesions are noted on bright light exam. The patient is known to be group B beta strep positive. Therefore, with admission, she was initiated on group B strep prophylaxis. COVID screen was also performed and she is COVID positive; however, she is asymptomatic. I assumed care shortly after 5 p.m. The patient was just undergoing epidural at that time. heart tones remained in the 140s with variability. After epidural, patient became more comfortable and contractions began to dissipate. With monitoring, she was not making any further cervical change, so therefore shortly after 11 p.m. initiated Pitocin augmentation. The patient began to progress more rapidly thereafter. There was no obvious spontaneous rupture of membranes; however, believe occurred-approximately between 12 a.m. and 1 a.m. The patient progressed fairly quickly thereafter and shortly after 2 a.m. was found to be complete, 100% effaced, 0 station, I was called for delivery. DESCRIPTION OF PROCEDURE: Upon my arrival, patient was placed in modified dorsal lithotomy position and was prepped and draped in usual aseptic manner. She was found to be +3 station. With the next contraction was able to push and deliver 's head atraumatically spontaneously, followed by anterior shoulder, posterior shoulder, and remainder of the body without difficulty. There was a large amount of clear fluid noted. The infant's oropharynx and nares were bulb suctioned. Infant was handed off to her mother with attending nursing staff at the side. After a delay, the cord was clamped x2 and cut. Cord arterial, cord venous, cord blood sampling obtained. Light pressure was applied while the placenta was delivered spontaneously intact. Vigorous fundal uterine massage was then applied while 30 units of Pitocin was delivered in 500 mL of fluid. Upon inspection of cervix, vaginal sidewalls, and perineum, these were found to be intact. Uterus remained firm. Hemostasis evident. Sponge and instrument count was correct. The patient remained in LDRP and will remain in isolation with the COVID positive status. She is opting for the infant to stay with her in isolation. DINESH / DILAN /[id number]
[2020-08-28] MEDS: Ibuprofen 800 MG Tab PO PRN ×2 (13:56→20:40)
[2020-08-28] MEDS: Acetaminophen 500 MG Tab PO PRN (22:26)
[2020-08-29] MEDS: Ibuprofen 800 MG Tab PO PRN (04:18)
[2020-08-29] MEDS: Acetaminophen 500 MG Tab PO PRN (08:17)
[2020-08-29 08:31] VITALS: BP 132/82; PULSE 75
--- NOTE | 2020-08-29 08:43 | PCM.PNPP ---
- General Info Date of Service: 08/29/20 Functional Status: Reports: Pain Controlled, Tolerating Diet, Ambulating, Urinating - Review of Systems General: Reports: Fatigue. Denies: Fever, Weakness Pulmonary: Denies: Shortness of Breath Cardiovascular: Denies: Chest Pain, Palpitations, Lightheadedness Gastrointestinal: Denies: Abdominal Pain, Nausea, Vomiting Genitourinary: Denies: Flank Pain Musculoskeletal: Reports: No Symptoms Skin: Reports: No Symptoms Neurological: Reports: No Symptoms Psychiatric: Reports: No Symptoms - General Info Date of Service: 08/29/20 - Patient Data Vital Signs - Most Recent: Last Vital Signs Temp 36.1 C 08/29/20 08:15 Pulse 75 08/29/20 08:15 Resp 20 08/29/20 08:15 BP 132/82 08/29/20 08:15 Pulse Ox 97 08/29/20 08:15 Weight - Most Recent: 120.656 kg Med Orders - Current: Current Medications Acetaminophen (Tylenol Extra Strength) 1,000 mg PO Q4H PRN PRN Reason: Pain/Fever Last Admin: 08/29/20 08:17 Dose: 1,000 mg Documented by: Butorphanol Tartrate (Stadol) 1 mg IVPUSH Q1H PRN PRN Reason: Pain Carboprost Tromethamine (Hemabate Ds) 250 mcg IM ASDIRECTED PRN PRN Reason: Post Hemorrhage Lactated Ringer's (Ringers, Lactated) 1,000 mls @ 150 mls/hr IV ASDIRECTED DENYS Last Infusion: 08/27/20 18:48 Dose: 150 mls/hr Documented by: Tranexamic Acid 1,000 mg/ (Sodium Chloride) 110 mls @ 660 mls/hr IV ONETIME PRN PRN Reason: Bleeding Ibuprofen (Motrin) 800 mg PO Q6H PRN PRN Reason: Pain/Fever Last Admin: 08/29/20 04:18 Dose: 800 mg Documented by: Lidocaine HCl (Xylocaine 1%) 50 ml INJECT ONETIME PRN PRN Reason: Laceration repair Methylergonovine Maleate (Methergine) 0.2 mg IM ASDIRECTED PRN PRN Reason: Post Hemorrhage Misoprostol (Cytotec) 200 mcg PO ONETIME PRN PRN Reason: Post Hemorrhage Nalbuphine HCl (Nubain) 10 mg IVPUSH Q1H PRN PRN Reason: Pain (severe 7-10) Sodium Chloride (Saline Flush) 10 ml FLUSH ASDIRECTED PRN PRN Reason: Keep Vein Open Sodium Chloride (Saline Flush) 2.5 ml FLUSH ASDIRECTED PRN PRN Reason: Keep Vein Open Sodium Chloride (Normal Saline) 10 ml IV ASDIRECTED PRN PRN Reason: IV Use Sterile Water (Sterile Water For Irrigation) 1,000 ml IRR ASDIRECTED PRN PRN Reason: delivery Discontinued Medications Ampicillin Sodium (Ampicillin) Confirm Administered Dose 2 gm IV .STK-MED ONE Stop: 08/27/20 18:02 Ampicillin Sodium (Ampicillin) Confirm Administered Dose 1 gm .ROUTE .STK-MED ONE Stop: 08/27/20 20:44 Ampicillin Sodium (Ampicillin) Confirm Administered Dose 1 gm .ROUTE .STK-MED ONE Stop: 08/28/20 02:01 Oxytocin/Sodium Chloride (Oxytocin 30 Unit/500 Ml-Ns) 30 unit in 500 mls @ 500 mls/hr IV TITRATE PENDING SALE TO [facility] Fentanyl/Bupivacaine HCl (Fentanyl/Bupivacaine/Ns 2 Mcg-0.125% 250 Ml) Confirm Administered Dose 250 mls @ as directed .ROUTE .STK-MED ONE Stop: 08/27/20 17:35 Ampicillin Sodium 2 gm/ Sodium (Chloride) 100 mls @ 200 mls/hr IV ONETIME ONE Stop: 08/27/20 18:14 Last Admin: 08/27/20 18:00 Dose: 200 mls/hr Documented by: Sodium Chloride (Normal Saline) Confirm Administered Dose 100 mls @ as directed .ROUTE .STK-MED ONE Stop: 08/27/20 18:03 Ampicillin Sodium 1 gm/ Sodium (Chloride) 50 mls @ 100 mls/hr IV Q4H PENDING SALE TO [facility] Last Admin: 08/27/20 21:46 Dose: 100 mls/hr Documented by: Oxytocin/Sodium Chloride (Oxytocin 30 Unit/500 Ml-Ns) Confirm Administered Dose 30 unit in 500 mls @ as directed .ROUTE .STK-MED ONE Stop: 08/27/20 19:19 Sodium Chloride (Normal Saline) Confirm Administered Dose 50 mls @ as directed .ROUTE .STK-MED ONE Stop: 08/27/20 20:45 Oxytocin/Sodium Chloride (Oxytocin 30 Unit/500 Ml-Ns) 30 unit in 500 mls @ 2 mls/hr IV TITRATE DENYS; Protocol Last Infusion: 08/28/20 01:38 Dose: 16 munits/min, 16 mls/hr Documented by: Sodium Chloride (Normal Saline) Confirm Administered Dose 50 mls @ as directed .ROUTE .STK-MED ONE Stop: 08/28/20 02:02 - Infant Interaction Support Person: Sister - Recovery Exam Fundal Tone: Firm Fundal Level: 1 Fingerbreadths Below Umbilicus Fundal Placement: Midline Lochia Amount: Scant Lochia Color: Rubra/Red Perineum Description: Intact, Minimal Bruising/Swelling Episiotomy/Laceration: None Bladder Status: Voiding - Exam General: Alert, Oriented Lungs: Normal Respiratory Effort Cardiovascular: Regular Rate, Regular Rhythm GI/Abdominal Exam: Normal Bowel Sounds, Soft Extremities: Pedal Edema (trace). No: Arturo's Sign Skin: Warm, Dry, Intact Neurological: No New Focal Deficit Psy/Mental Status: Alert, Normal Affect, Normal Mood - Problem List & Annotations (1) Vaginal delivery SNOMED Code(s): 455682127 Code(s): O80 - ENCOUNTER FOR FULL-TERM UNCOMPLICATED DELIVERY Status: Acute Current Visit: Yes (2) COVID-19 affecting childbirth SNOMED Code(s): 988904120 Code(s): O98.52 - OTHER VIRAL DISEASES COMPLICATING CHILDBIRTH; U07.1 - COVID-19 Status: Acute Current Visit: Yes - Problem List Review Problem List Initiated/Reviewed/Updated: Yes - My Orders Last 24 Hours: My Active Orders 08/29/20 08:32 HEMOGLOBIN/HEMATOCRIT,HH [HEME] Urgent 08/29/20 08:33 BASIC METABOLIC PANEL,BMP [CHEM] Urgent 08/29/20 08:40 Ready for Discharge [RC] PER UNIT ROUTINE - Assessment Assessment:: PPD 1 status post COVID + --asymptomatic - Plan Plan:: Patient would like to go home today. She understands will need to maintain isolation status for 10 days post positive test result. Infection and bleeding warnings reviewed. Follow up at [facility] 4 weeks and understands needs 75 gm GTT at that time. She will check sugars intermitently in PP period and call if >130. Discharge to home today.
[2020-08-29 09:16] LABS: BLOOD UREA NITROGEN,BUN 10 mg/dL (7.0-18.0); CARBON DIOXIDE,CO2 24.3 mmol/L (21.0-32.0); CHLORIDE,CL 104 mmol/L (98-107); GLUCOSE RANDOM 90 mg/dL (74-106); POTASSIUM,K 3.4 mmol/L (3.5-5.1); SODIUM,NA 138 mmol/L (136-145)
== END 2020-08-29 14:58 | disposition home or self-care (01) | DRG 805 ==
LOC: MW.OBCHECK 16:23 → MW.OB 16:36 → MW.OBCHECK 16:45 → OBSVTOIN 08-28 02:51 → MW.OB 08-28 06:40
PROVIDERS: ADMIT Obstetrics & Gynecology; ATTEND Obstetrics & Gynecology
PROC: 10E0XZZ Delivery of Products of Conception, External Approach (ICD-10-PCS; principal; 2020-08-28)
PROC: 3E0R3BZ Introduction of Anesthetic Agent into Spinal Canal, Percutaneous Approach (ICD-10-PCS; 2020-08-28)
PROC: 00HU33Z Insertion of Infusion Device into Spinal Canal, Percutaneous Approach (ICD-10-PCS; 2020-08-28)
DX: O24.420 Gestational diabetes mellitus in childbirth, diet controlled (principal); U07.1 COVID-19; Z37.0 Single live birth; O98.52 Other viral diseases complicating childbirth; O99.324 Drug use complicating childbirth; Z3A.37 37 weeks gestation of pregnancy; O99.824 Streptococcus B carrier state complicating childbirth; F12.90 Cannabis use, unspecified, uncomplicated; O99.334 Smoking (tobacco) complicating childbirth; F17.200 Nicotine dependence, unspecified, uncomplicated
CPT/HCPCS: 36415; 51702; 59025; 59409; 80048; 80305-QW; 82803; 85014; 85018; 85027; 86592; 86850; 86900; 86901; A9270-GY; J0290; J2590; J7050; J7120; U0002

== ENCOUNTER 2021-11-28 21:02 | Emergency (ER) | payer MEDICAID ==
[2021-11-28 21:59] VITALS: BP 124/84; PULSE 82
== END 2021-11-28 22:01 ==
LOC: MW.ED 21:02
DX: Z02.89 Encounter for other administrative examinations (principal); E66.9 Obesity, unspecified; Z68.31 Body mass index [BMI] 31.0-31.9, adult
CPT/HCPCS: 82947; 99282; 99283

== ENCOUNTER 2022-01-11 12:35 | Emergency (ER) | payer MEDICAID | END 2022-01-11 13:29 | disposition left against medical advice (07) | LOC: MW.ED 12:35 | DX: Z53.21 Procedure and treatment not carried out due to patient leaving prior to being seen by health care provider (principal) ==

== ENCOUNTER 2022-03-28 14:01 | Emergency (ER) | payer SELFPAY | END 2022-03-28 17:00 | disposition left against medical advice (07) | LOC: MW.ED 14:01 | DX: M25.511 Pain in right shoulder (principal); Z53.21 Procedure and treatment not carried out due to patient leaving prior to being seen by health care provider ==

== ENCOUNTER 2022-04-24 00:57 | Emergency (ER) | payer MEDICAID ==
[2022-04-24] MEDS ORDERED: Sulfamethoxazole/Trimethoprim 800-160 MG Tab PO ONE (01:31)
[2022-04-24] MEDS ORDERED: Ibuprofen 600 MG Tab PO ONE (01:31)
[2022-04-24 01:45] VITALS: BP 103/71; PULSE 100
== END 2022-04-24 01:45 | disposition home or self-care (01) ==
LOC: MW.ED 00:57
DX: L03.115 Cellulitis of right lower limb (principal); L02.415 Cutaneous abscess of right lower limb; E66.9 Obesity, unspecified; Z68.28 Body mass index [BMI] 28.0-28.9, adult
CPT/HCPCS: 99281; A9270; 99283

== ENCOUNTER 2023-09-23 04:17 | Emergency (ER) | payer MEDICAID, OTHER ==
[2023-09-23 04:29] VITALS: BP 117/85; PULSE 81
== END 2023-09-23 04:46 ==
LOC: MW.ED 04:17
DX: Z02.89 Encounter for other administrative examinations (principal); E11.9 Type 2 diabetes mellitus without complications; E66.9 Obesity, unspecified; Z68.29 Body mass index [BMI] 29.0-29.9, adult
CPT/HCPCS: 82947; 99283

== ENCOUNTER 2024-09-10 22:43 | Emergency (ER) | payer SELFPAY ==
[2024-09-10 23:00] VITALS: BP 125/88; PULSE 95
[2024-09-11] MEDS: Ketorolac 30 MG/ML SDV IM ONE
== END 2024-09-11 01:37 ==
LOC: MW.ED 22:43
DX: S70.11XA Contusion of right thigh, initial encounter (principal); E66.9 Obesity, unspecified; E11.9 Type 2 diabetes mellitus without complications; F17.210 Nicotine dependence, cigarettes, uncomplicated; Z68.31 Body mass index [BMI] 31.0-31.9, adult; W22.8XXA Striking against or struck by other objects, initial encounter; Y92.019 Unspecified place in single-family (private) house as the place of occurrence of the external cause
CPT/HCPCS: 73552; 96372; 99283; J1885